=== PATIENT | male | born 1970 | race Caucasian/White ===

== ENCOUNTER → 2023-12-19 16:18 | Outpatient (BNVA) | payer OTHER, SELFPAY | PROVIDERS: PCP Family Medicine; Visit Provider Family Medicine | DX: Z00.00 Encounter for general adult medical examination without abnormal findings (principal); Z13.6 Encounter for screening for cardiovascular disorders; G47.33 Obstructive sleep apnea (adult) (pediatric) | CPT/HCPCS: 80053; 80061 ==

== ENCOUNTER 2024-03-09 15:55 | Outpatient (CLI) | payer OTHER, SELFPAY | END 2024-03-09 15:56 | disposition home or self-care (01) | LOC: SLEEP 15:59 | PROVIDERS: PCP Family Medicine; Visit Provider Family Medicine | DX: G47.33 Obstructive sleep apnea (adult) (pediatric) (principal); Z00.00 Encounter for general adult medical examination without abnormal findings; G47.36 Sleep related hypoventilation in conditions classified elsewhere; F51.9 Sleep disorder not due to a substance or known physiological condition, unspecified | CPT/HCPCS: G0399 ==